=== PATIENT | male | born 1960 | race Caucasian/White ===

== ENCOUNTER 2023-08-12 17:18 | Emergency (ER) | payer MEDICARE, BC, SELFPAY ==
[2023-08-12 17:18] VITALS: BMI 28.8
[2023-08-12 17:29] VITALS: BP 124/77
[2023-08-12 17:52] LABS: % Basophils 0.3 % (0-2); % Eosinophils 2.8 % (0-6); % Immature Granulocytes 0.3 % (0-0.5); % Lymphocytes 25.2 % (20.5-51.1); % Monocytes 15.2 % (1.7-9.3); % Neutrophils 56.2 % (42.2-75.2); Absolute Eosinophils 0.2 10^3/uL (0-0.7); Absolute Lymphocytes 1.6 10^3/uL (1.2-3.4); Absolute Neutrophils 3.6 10^3/uL (1.4-6.5); Hemoglobin 15.9 g/dL (13.0-18.0); Mean Corp Hgb Conc. 36.1 g/dL (33.0-37.0); Mean Corpuscular Hgb 29.7 pg (27.0-31.0); Mean Corpuscular Volume 82.2 fL (80.0-94.0); Mean Platelet Volume 9.8 fL (7.4-10.4); Nucleated Red Blood Cells % 0 % (-); Platelet Count 234 10^3/uL (130-400); Red Blood Cell Count 5.35 10^6/uL (4.70-6.10); Red Cell Dist. Width 13.2 % (11.5-14.5); White Blood Cell Count 6.4 10^3/uL (4.8-10.8)
[2023-08-12 18:24] LABS: ALT (SGPT) 66 U/L (0-50); AST (SGOT) 52 U/L (17-59); Albumin 4.2 g/dl (3.5-5.0); Alkaline Phosphatase 102 U/L (38-126); Blood Urea Nitrogen 14 mg/dl (9-20); Calcium 9.4 mg/dl (8.4-10.2); Carbon Dioxide 27 mmol/L (22-30); Chloride 98 mmol/L (98-107); Glucose 107 mg/dl (70-99); Potassium 4.1 mmol/L (3.5-5.1); Sodium 135 mmol/L (135-145); Total Bilirubin 1.4 mg/dl (0.2-1.3); Total Protein 7.2 g/dl (6.3-8.2); eGFR > 60.00
--- NOTE | 2023-08-12 20:20 | ED.GENMED ---
History of Present Illness
General
Chief Complaint: Dehydration Symptoms
Source: patient
Exam Limitations: none
Time Seen by Provider: 08/12/23 19:45
Travel History
Have you had any contact with someone who has COVID-19?: No
Do you have any symptoms of coronavirus? Fever > 100 degrees, chills, cough, shortness of breath, sore throat, loss of taste or smell, muscle aches, or headache?: No
History of Present Illness
History of Present Illness:
This is a 63 year old male that comes in with c/o weakness. States that Thursday he just did not feel himself. States that he went to bed at 7pm and he has not been out of bed since then. State that he would feel hot and then had cold sweats,
headache, lethargic and diarrhea. States that he would try and get out of bed and he was wobbly and had to hold onto things. States that he knocked over the night stand. States that he has had chills, nausea, diarrhea, headache from front to back
and his urine is very concentrated. Denies any fever, chest pain, SOB, abd pain, vomiting, dizziness, urinary burning.
Past History
Past History
ED Past Medical History: Cancer (Sarcoma)
ED Past Surgical History: Urological (Partial right Nephrectomy) and Other (Left lung Lobectomy, Right chest flank removal due to Sarcoma, Hernia repair, sarcoma of spine removed. )
Social History
Tobacco: Non-smoker
Alcohol: None
Personal:
Living: with family
Review of Systems
Review of Systems
All Other Systems: ROS reviewed and negative except as documented in HPI and ROS
Constitutional: Reports fatigue, night sweats and chills; Denies fever
EENT: Reports no symptoms
Respiratory: Reports no symptoms; Denies cough or trouble breathing
Cardiac: Reports no symptoms; Denies chest pain
ABD/GI: Reports nausea and diarrhea; Denies abdominal pain or vomiting
: Reports dark urine; Denies dysuria or frequency
Musculoskeletal: Reports no symptoms
Skin: Reports no symptoms
Neurological: Reports headache; Denies dizzy
Psychiatric: Reports no symptoms
Phy Exam
General Physical Exam
General Presentation: no apparent distress
General age: appears stated age
General Skin: warm and dry
General Habitus: normal
General Mental: alert
General Hydration: appears well hydrated
ENT Exam
ENT Exam: TM's normal, pharynx normal and neck supple
Eye Exam
Eye Exam: EOMI
Cardiovascular Exam
Cardiovascular Exam: regular rate/rhythm, no edema, no murmur and normal peripheral pulses
Pulmonary Exam
Pulmonary Exam: lungs clear, no respiratory distress, no rales, chest non tender, no crackles, no rhonchi, no wheezing and no cough
Gastrointestinal Exam
Gastrointestinal Exam: normal bowel sounds, non tender, soft, no organomegaly, no pulsatile mass and non distended
Musculoskeletal Exam
Musculoskeletal Exam: full ROM and no edema
Skin Exam
Skin Exam: normal color, warm/dry, no rash and no petechia
Psychiatric Exam
Psychiatric Exam: normal mood/affect
Course
Orders/Labs/Results
Orders:
Orders
08/12/23 17:39
CMP [Comprehensive Metabolic Panel] Urgent
Complete Blood Count/With Diff Urgent
08/12/23 20:19
0.9% Sodium Chloride 1000 ml [Nss] 1,000 ml IV BOLUS
08/12/23 20:20
CR Chest - 2 Views Urgent
Comment: history of sarcoma
Reason For Exam: weakness
08/12/23 20:21
CT Head W/o Iv Contrast Urgent
Comment:
Reason For Exam: Headache, balance problem
08/12/23 20:56
Lactic Acid Urgent
Blood Culture Q30M
MARSHAL Source: Blood/Venous
Specimen Description:
08/12/23 21:00
Blood Culture Q30M
MARSHAL Source: Blood/Venous
Specimen Description:
08/12/23 21:04
COVID-19 Antigen Urgent
Source: Nasal Swab
08/12/23 23:39
Urinalysis Reflex To Culture Urgent
Date Specimen was Collected: 08/12/23
Time Specimen was Collected: 23:37
Urine Microscopic Reflex Cult Urgent
Abnormal Lab Results
08/12/23 08/12/23
17:39 23:39
Absolute Monos (auto) 1.0 H 10^3/uL
(0.1-0.6)
Monocytes % 15.2 H %
(1.7-9.3)
Glucose 107 H mg/dl
(70-99)
Total Bilirubin 1.4 H mg/dl
(0.2-1.3)
ALT 66 H U/L
(0-50)
Urine Ketones 1+ A
(Negative)
Leukocyte Esterase Rfl Trace A
(Negative)
08/12/23 17:39
08/12/23 17:39
Glucose nonfasting. Total nigel very slightly elevated. ALT elevation. COVID negative, Urine negative for infection
Vital Signs
Initial and Last Documented VS:
Initial Vital Signs
Temp Pulse Resp BP Pulse Ox
98.3 F 85 20 124/77 98
08/12/23 17:08/12/23 17:08/12/23 17:08/12/23 17:08/12/23 17:29
Last Documented Vital Signs
Temp Pulse Resp BP Pulse Ox
98.3 F 85 20 139/71 96
08/12/23 17:29 08/12/23 17:08/12/23 17:29 08/13/23 00:00 08/13/23 00:00
MDM/Problems Addressed
Differential Diagnosis Includes:
Viral syndrome.
MDM/Problems Addressed:
This is a 63 year old male that comes in with multiple complaints. state that he just did not feel himself on Thursday and stayed in bed till today. States that he has had a headache, lethargic, diarrhea, nausea and he felt wobbly.
Will get labs. CT head and chest x-ray. will give IV fluids, COVID and urine.
Back into see patient. Reviewed labs and CT findings. Got patient OOB and he was able to walk in the room without difficulty and went to the BR
Into see patient explained that his urine is negative for infection. Encouraged patient to increase his water intake, Follow up with the family doctor tomorrow and return with any other concerns.
Chronic conditions affecting care:
NA
Acute Exacerbation and/or Progression of Chronic Illness:
NA
*Radiology
Radiology exam reviewed: radiology read reviewed (CT head-No acute intracranial abnormality. chest-No acute cardiopulmonary process. )
*Pulse Oximetry
Patient hypoxic: no
*EKG
Interpreted by ED Provider?: NA
Rate: EKG- N/A
*Fuse Cutter Interpretation
Rate: Fuse Cutter- N/A
*Critical Care Note
Total Time (30-74mins, 75-104mins- exclusive of procedures): Not Applicable
ED Attending Note
-
Portions of this chart may have been created with voice recognition software.� Occasional wrong word or��sound alike� substitutions may have occurred due to the inherent limitations of voice recognition software.
Discharge Plan
Departure
Patient Disposition: Home (Routine Discharge)
Date of Disposition: 08/13/23
Time of Disposition: 00:17
Patient with high blood pressure during this ER visit?: Yes
Condition: Good
Covid-19: Negative COVID-19
Discharge Problem:
Headache, Nausea and diarrhea
Instructions: Headache, Adult ED, BLOOD PRESSURE
Prescriptions:
No Action
cetirizine 10 mg Tablet
10 mg PO QPM
ibuprofen 200 mg Capsule
600 mg PO Q6H PRN (Reason: mild pain/fever)
metoprolol succinate 100 mg Tablet Extended Release 24 Hr
100 mg PO QPM
amlodipine 5 mg tablet
5 mg PO QPM
escitalopram oxalate 10 mg tablet
10 mg PO QPM
rosuvastatin 5 mg tablet
5 mg PO QPM
tadalafil 5 mg tablet
5 mg PO DAILY PRN (Reason: ed)
Referrals:
Tanya Bernstein MD [Family Provider] - Follow up in 2-3 days
Activity Restrictions/Additional Instructions:
As discussed, your blood work shows that your lactic acid is normal along with your WBC. Your ALT is very slightly elevated and t his can happen with a viral illness. You are negative for COVID and your urine is negative. Your CT of the head is
normal along with your chest x-ray. Please increase your water intake to 8-8oz glasses daily. Follow up with the family doctor in the next 1-3 days. IF YOU HAVE ANY OTHER CONCERNS PLEASE RETURN TO THE EMERGENCY ROOM.
Interventions
Interventions:
*Risk Screen - Suicide Last Done: 08/12/23 17:29
*General Assessment Last Done: 08/12/23 17:29
*Neglect/Abuse Screening Last Done: 08/12/23 17:29
ED- Fall Risk Assessment Last Done: 08/12/23 20:43
ED- Cardiac Assessment Last Done: 08/12/23 20:43
ED- Neurological Assessment Last Done: 08/12/23 20:43
ED- Pulmonary Assessment Last Done: 08/12/23 20:43
Discharge Date and Time
Print Language: HUNGARIAN
[2023-08-12 20:42] VITALS: BP 130/65
[2023-08-12] MEDS: NSS 1000 IV (20:58)
[2023-08-12 21:00] VITALS: BP 152/82
[2023-08-12 21:26] LABS: COVID-19 Antigen Negative (Negative)
[2023-08-12 22:00] VITALS: BP 115/69
[2023-08-12 23:00] VITALS: BP 125/69
[2023-08-12 23:49] LABS: Urine Albumin Negative (Neg - Trace); Urine Bilirubin Negative (Negative); Urine Character Clear (Clear); Urine Color Yellow; Urine Glucose Negative (Negative); Urine Ketone 1+ (Negative); Urine Leukocyte Trace (Negative); Urine Nitrite Negative (Negative); Urine Occult Blood Negative (Negative); Urine Specific Gravity 1.025 (<1.030); Urine Urobilinogen Negative (Neg - 1+)
[2023-08-13] VITALS: BP 139/71
[2023-08-13 00:46] LABS: Urine Bacteria Moderate (Negative); Urine Granular Cast 0-2 /LPF (0); Urine Hyaline Cast 0-2 /LPF (0-2); Urine Mucus Moderate; Urine Red Blood Cell 0-2 /HPF (0-2)
== END 2023-08-13 00:33 | disposition home or self-care (01) ==
LOC: EMR 17:18
PROVIDERS: Clinical Nurse Specialist Family Health; Student in an Organized Health Care Education/Training Program; EMERGENCY PHYSICIAN Emergency Medicine; FAMILY PHYSICIAN Emergency Medicine
DX: R51.9 Headache, unspecified (principal); R11.0 Nausea; R19.7 Diarrhea, unspecified; R53.83 Other fatigue; R26.89 Other abnormalities of gait and mobility; Z11.52 Encounter for screening for COVID-19; R03.0 Elevated blood-pressure reading, without diagnosis of hypertension; Z90.5 Acquired absence of kidney; Z90.2 Acquired absence of lung [part of]; Z85.831 Personal history of malignant neoplasm of soft tissue; Z88.0 Allergy status to penicillin
CPT/HCPCS: 99284; 96360; 70450; 71046; 80053; 81003; 81015; 83605; 85025; 87040; 87086; 87811

== ENCOUNTER 2023-11-15 21:36 | Emergency (ER) | payer MEDICARE, BC, SELFPAY ==
[2023-11-15 21:42] VITALS: BP 122/72
[2023-11-15 22:07] LABS: % Basophils 0.1 % (0-2); % Eosinophils 0.4 % (0-6); % Immature Granulocytes 0.4 % (0-0.5); % Lymphocytes 8.7 % (20.5-51.1); % Neutrophils 85.4 % (42.2-75.2); Absolute Eosinophils 0.1 10^3/uL (0-0.7); Absolute Immature Granulocytes 0.1 10^3/uL (0-0.05); Absolute Lymphocytes 1.2 10^3/uL (1.2-3.4); Absolute Monocytes 0.7 10^3/uL (0.1-0.6); Absolute Neutrophils 11.5 10^3/uL (1.4-6.5); Hemoglobin 15.5 g/dL (13.0-18.0); Mean Corp Hgb Conc. 36.9 g/dL (33.0-37.0); Mean Corpuscular Hgb 30.3 pg (27.0-31.0); Mean Corpuscular Volume 82.2 fL (80.0-94.0); Mean Platelet Volume 9.3 fL (7.4-10.4); Nucleated Red Blood Cells % 0 % (-); Platelet Count 226 10^3/uL (130-400); Red Blood Cell Count 5.11 10^6/uL (4.70-6.10); White Blood Cell Count 13.5 10^3/uL (4.8-10.8)
[2023-11-15 22:13] VITALS: BMI 30.2
[2023-11-15 22:32] LABS: ALT (SGPT) 32 U/L (0-50); AST (SGOT) 33 U/L (17-59); Albumin 4.8 g/dl (3.5-5.0); Alkaline Phosphatase 66 U/L (38-126); Blood Urea Nitrogen 15 mg/dl (9-20); Calcium 9.1 mg/dl (8.4-10.2); Carbon Dioxide 22 mmol/L (22-30); Chloride 103 mmol/L (98-107); Estimated Creatinine Clearance 95 ml/min; Glucose 141 mg/dl (70-99); Potassium 4.4 mmol/L (3.5-5.1); Sodium 141 mmol/L (135-145); Total Bilirubin 1.3 mg/dl (0.2-1.3); Total Protein 7.2 g/dl (6.3-8.2); eGFR > 60.00
[2023-11-15 22:37] VITALS: BP 122/73; BP 123/65; BP 131/72; PULSE 71; PULSE 75; PULSE 77
--- NOTE | 2023-11-16 00:22 | ED.GENMED ---
History of Present Illness
General
Chief Complaint: Fainting Sensation
Source: patient, family (Son who is at bedside) and ambulance crew
Exam Limitations: none
Time Seen by Provider: 11/15/23 22:57
Nursing documentation reviewed up to this point in time: agreed with
History of Present Illness
History of Present Illness:
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 No history of recurrence.
[place] most of the day today admits to drinking 5-6 beers throughout the day and while sitting on a bench he began to feel lightheaded, nauseous, became diaphoretic and proceeded to pass out. Son who was with him
witnessed his father to lean back, brief loss of consciousness and then sat forward, retched and vomited several times. He did not fall off of the bench. Loss of consciousness was brief and without recurrence. He denies palpitations nor chest
pain. He denies dizziness, no headache, no chest nor back pain or abdominal pain. No history of similar episodes in the past. Prior to this event he had been feeling well.
Upon EMS arrival patient noted to be hypotensive, was given IV normal saline�1 L as well as IV Zofran 4 mg prehospital with complete resolution of symptoms.
Past History
Past History
ED Past Medical History: Cancer (Sarcoma), HTN and Hypercholesterolemia
ED Past Surgical History: Urological (Partial right Nephrectomy) and Other (Left lung Lobectomy, Right chest flank removal due to Sarcoma, Hernia repair, sarcoma of spine removed. )
Social History
Tobacco: Non-smoker
Alcohol: Occasional
Drug: None
Personal:
Living: with family
Employment: Retired
Family History
Family History: Other (Noncontributory)
Phy Exam
Physical Exam
Physical Exam:
GENERAL: 63-year-old gentleman appears his stated age, bright and alert, pleasant, appears in no acute distress. Quite jovial and easily communicative. Son is accompanying.
EYE: pupils equal and reactive. anicteric
NECK: Supple, nontender, no meningismus, no significant adenopathy.
ENT: posterior pharynx is clear, oral mucosa is moist. No rhinorrhea.
CARDIAC: Regular rate and rhythm. no murmur.
LUNGS: Clear breath sounds bilaterally, no acute respiratory distress, no wheezes/rales/rhonchi
ABDOMEN: Soft, nondistended, without focal tenderness, no r/g, no cvat. normoactive BS.
NEUROLOGICAL: Alert and oriented x3, no focal neuro deficits.
SKIN: Warm and dry, moderately tanned, sun exposed skin, skin intact. No rash.
MUSCULOSKELETAL: No C/C/E. peripheral pulses are full and equal b/l. No palpable tenderness.
PSYCH: Normal and appropriate interaction.
Course
Orders/Labs/Results
Orders:
Orders
11/15/23 21:49
Electrocardiogram (*1) Urgent
Reason for Study: Syncope
EKG- Treatment ONCE
11/15/23 21:59
Complete Blood Count/With Diff Urgent
Comprehensive Metabolic Panel Urgent
11/15/23 23:20
Orthostatic VS- Treatment ONCE
Abnormal Lab Results
11/15/23
21:59
WBC 13.5 H 10^3/uL
(4.8-10.8)
Abs Immat Gran (auto) 0.1 H 10^3/uL
(0-0.05)
Absolute Neuts (auto) 11.5 H 10^3/uL
(1.4-6.5)
Absolute Monos (auto) 0.7 H 10^3/uL
(0.1-0.6)
Neutrophils % 85.4 H %
(42.2-75.2)
Lymphocytes % 8.7 L %
(20.5-51.1)
Glucose 141 H mg/dl
(70-99)
11/15/23 21:59
11/15/23 21:59
Vital Signs
Initial and Last Documented VS:
Initial Vital Signs
Temp Pulse Resp BP Pulse Ox
97.4 F 76 18 122/72 97
11/15/23 21:42 11/15/23 21:42 11/15/23 21:42 11/15/23 21:42 11/15/23 21:42
Last Documented Vital Signs
Temp Pulse Resp BP Pulse Ox
97.4 F 76 18 122/72 96
11/15/23 21:42 11/15/23 21:42 11/15/23 21:42 11/15/23 21:42 11/15/23 22:21
MDM/Problems Addressed
Differential Diagnosis Includes:
History concerning for vasovagal syncope, dehydration, arrhythmia, gastroenteritis. Nothing to suggest seizure.
Prompt resolution of symptoms after IV fluids and an IV dose of Zofran.
Remains hemodynamically stable since arrival to the ED.
EKG is unremarkable.
Monitor shows normal sinus rhythm without ectopy.
Labs show mildly elevated 1 blood cell count of 13, normal H&H.
Chemistries show mildly elevated random glucose of 141 otherwise unremarkable.
Will check orthostatic vital signs, trial oral fluids and continue front desk monitor.
Chronic conditions affecting care: HTN
*Pulse Oximetry
Patient hypoxic: no
*EKG
Interpreted by ED Provider?: Yes
Interpretation: normal
Comparison EKG: no comparison EKG present
Rate: normal
Rhythm: sinus
[place]: normal axis
Interval: normal interval
QRS Pattern: normal QRS
Ischemia: no ischemia
*Seed Production Field Supervisor Interpretation
Rate: normal
Interpretation: normal
Rhythm: sinus
*Critical Care Note
Total Time (30-74mins, 75-104mins- exclusive of procedures): Not Applicable
Update Note
Update Note:
11/16/2023 0030 AM
Orthostatic vital signs are negative.
Patient continues to feel well without return of nausea nor syncopal symptoms.
Tolerating oral fluids.
Will discharge to home with recommendations for follow-up with PCP for recheck.
Discussed importance of avoiding any further alcoholic beverages otherwise rest, stay well-hydrated on a daily basis.
Return precautions discussed.
ED Attending Note
-
Portions of this chart may have been created with voice recognition software.� Occasional wrong word or��sound alike� substitutions may have occurred due to the inherent limitations of voice recognition software.
Discharge Plan
Departure
Patient Disposition: Home (Routine Discharge)
Date of Disposition: 11/16/23
Time of Disposition: 00:36
Patient with high blood pressure during this ER visit?: No
Condition: Good
Discharge Problem:
Vasovagal syncope
Instructions: Syncope (Fainting) (DC), Vasovagal Response (DC)
Prescriptions:
No Action
cetirizine 10 mg Tablet
10 mg PO QPM
metoprolol succinate 100 mg Tablet Extended Release 24 Hr
100 mg PO QPM
amlodipine 5 mg tablet
5 mg PO QPM
escitalopram oxalate 10 mg tablet
10 mg PO QPM
rosuvastatin 5 mg tablet
5 mg PO QPM
tadalafil 5 mg tablet
5 mg PO DAILY PRN (Reason: ed)
ascorbic acid (vitamin C) [Vitamin C] 1,000 mg Tablet
1,000 mg PO DAILY
Referrals:
Tanya Bernstein MD [Family Provider] - Call in 1-3 days for appt
Interventions
Interventions:
*Risk Screen - Suicide Last Done: 11/15/23 21:42
*General Assessment Last Done: 11/15/23 21:42
*Neglect/Abuse Screening Last Done: 11/15/23 21:42
ED- Fall Risk Assessment Last Done: 11/15/23 22:21
ED- Cardiac Assessment Last Done: 11/15/23 22:21
ED- Neurological Assessment Last Done: 11/15/23 22:21
Discharge Date and Time
Print Language: MALIAN
[2023-11-16 01:30] VITALS: BP 126/82
== END 2023-11-16 01:45 | disposition home or self-care (01) ==
LOC: EMR 21:36
PROVIDERS: Emergency Medicine; EMERGENCY PHYSICIAN Emergency Medicine; FAMILY PHYSICIAN Emergency Medicine
DX: R55 Syncope and collapse (principal); I10 Essential (primary) hypertension; E78.00 Pure hypercholesterolemia, unspecified
CPT/HCPCS: 99284; 80053; 85025; 93005

== ENCOUNTER → 2023-12-16 08:14 | Outpatient (REF) | payer MEDICARE, BC, SELFPAY | LOC: HWRCS 08:14 | PROVIDERS: ATTENDING PHYSICIAN Internal Medicine Interventional Cardiology; FAMILY PHYSICIAN Emergency Medicine | DX: R42 Dizziness and giddiness (principal); I10 Essential (primary) hypertension | CPT/HCPCS: 93306 ==

== ENCOUNTER → 2023-12-22 08:32 | Outpatient (REF) | payer MEDICARE, BC, SELFPAY | LOC: MRI 3T 08:32 | PROVIDERS: ATTENDING PHYSICIAN Emergency Medicine | DX: R55 Syncope and collapse (principal) | CPT/HCPCS: 70553; A9575 ==

== ENCOUNTER → 2024-08-31 19:43 | Outpatient (REF) | payer BC, MEDICARE, SELFPAY | LOC: MRI 3T 19:43 | PROVIDERS: ATTENDING PHYSICIAN Specialist; FAMILY PHYSICIAN Emergency Medicine | DX: M25.511 Pain in right shoulder (principal) | CPT/HCPCS: 73221 ==

== ENCOUNTER 2025-01-30 14:19 | Emergency (ER) | payer MEDICARE, BC, SELFPAY ==
[2025-01-30] VITALS (10 sets, daily range): BP systolic 131–160; BP diastolic 71–98; PULSE 62–73; BMI 31.5
[2025-01-30 15:00] LABS: Hematocrit 46.3 % (39.0-52.0); Hemoglobin 15.2 g/dL (13.0-18.0); Mean Corp Hgb Conc. 32.8 g/dL (33.0-37.0); Mean Corpuscular Volume 88.2 fL (80.0-94.0); Nucleated Red Blood Cells % 0 % (-); Platelet Count 250 10^3/uL (130-400); Red Cell Dist. Width 13.1 % (11.5-14.5)
[2025-01-30 15:29] LABS: ALT (SGPT) 32 U/L (0-50); AST (SGOT) 23 U/L (17-59); Albumin 4.7 g/dl (3.5-5.0); Alkaline Phosphatase 58 U/L (38-126); Blood Urea Nitrogen 16 mg/dl (9-20); Calcium 9.2 mg/dl (8.4-10.2); Carbon Dioxide 29 mmol/L (22-30); Chloride 101 mmol/L (98-107); Glucose 106 mg/dl (70-99); Potassium 4.3 mmol/L (3.5-5.1); Sodium 136 mmol/L (135-145); Total Protein 7.2 g/dl (6.3-8.2); Troponin I 0.015 ng/ml; eGFR > 60.00
--- NOTE | 2025-01-30 16:00 | EDRN ---
Nikkie Hernandez [employer] OFFICER in to see pt.
--- NOTE | 2025-01-30 16:07 | ED.GENMED ---
History of Present Illness
General
Chief Complaint: Dizziness
Source: patient
Exam Limitations: none
Time Seen by Provider: 01/30/25 15:57
Nursing documentation reviewed up to this point in time: agreed with
History of Present Illness
History of Present Illness:
Patient to the emergency department for evaluation of dizziness and chest pain. States he started with dizziness approximately 1 week ago. He was seen by his family doctor and placed on meclizine 3 times daily. He reports no changes in his
symptoms. He also had noticed substernal chest pain radiating to the left side of his chest which had started about the same time. He had not addressed the chest pain with his provider at the office visit last week. Today he returned to his
provider for reevaluation. He discussed his ongoing chest pain with the provider and was advised to come to the emergency department for evaluation. He denies any headache or blurred vision. He denies fever/chills, or recent illness. He denies
any nausea/vomiting/diaphoresis. There are no aggravating or alleviating factors related to his chest pain. Movement of his head makes his dizziness worse. No prior history of either symptom in the past
Past History
Past History
ED Past Medical History: Cancer (Sarcoma), HTN and Hypercholesterolemia
ED Past Surgical History: Urological (Partial right Nephrectomy) and Other (Left lung Lobectomy, Right chest flank removal due to Sarcoma, Hernia repair, sarcoma of spine removed. )
Social History
Tobacco: Non-smoker
Alcohol: Occasional
Drug: None
Personal:
Living: with family
Employment: Retired
Family History
Family History: Other (Noncontributory)
Review of Systems
Review of Systems
Allergies reviewed?: Yes
All Other Systems: ROS reviewed and negative except as documented in HPI and ROS
Constitutional: Reports no symptoms
EENT: Reports no symptoms
Respiratory: Reports no symptoms
Cardiac: Reports chest pain (Substernal chest pressure with radiating to left side of his chest.)
ABD/GI: Reports no symptoms
: Reports no symptoms
Musculoskeletal: Reports no symptoms
Skin: Reports no symptoms
Neurological: Reports dizzy
Psychiatric: Reports no symptoms
Phy Exam
General Physical Exam
General Presentation: well appearing and no apparent distress
General age: appears stated age
General Skin: warm and dry
General Habitus: normal
General Mental: alert
ENT Exam
ENT Exam: EOMI and normocephalic
Eye Exam
Eye Exam: PERRL, EOMI, conjunctiva normal and globe normal
Cardiovascular Exam
Cardiovascular Exam: regular rate/rhythm and no edema
Pulmonary Exam
Pulmonary Exam: lungs clear and no respiratory distress
Neurological Exam
Neurological Exam: alert, oriented x3, CN II-XII intact, no motor deficits, no sensory deficits and speech normal
Musculoskeletal Exam
Musculoskeletal Exam: full ROM and no edema
Skin Exam
Skin Exam: normal color, warm/dry and no rash
Psychiatric Exam
Psychiatric Exam: normal mood/affect
Course
Orders/Labs/Results
Orders:
Orders
01/30/25 14:20
Electrocardiogram (*1) Urgent
Reason for Study: Chest Pain
EKG- Treatment ONCE
01/30/25 14:35
Complete Blood Count/With Diff Urgent
Comprehensive Metabolic Panel Urgent
Troponin I Urgent
01/30/25 16:04
Orthostatic VS- Treatment ONCE
01/30/25 16:05
CT Head W/o Iv Contrast Urgent
Comment:
Reason For Exam: dizziness
CR Chest - 2 Views Urgent
Comment:
Reason For Exam: chest pain
01/30/25 17:35
Troponin I Urgent
01/30/25 19:03
CT Chest PE Study Urgent
Comment:
Reason For Exam: CP/SOB
0.9% Sodium Chloride 1000 ml [Nss] 1,000 ml IV BOLUS
Abnormal Lab Results
01/30/25
14:35
WBC 11.0 H 10^3/uL
(4.8-10.8)
MCHC 32.8 L g/dL
(33.0-37.0)
Absolute Neuts (auto) 8.1 H 10^3/uL
(1.4-6.5)
Absolute Monos (auto) 0.7 H 10^3/uL
(0.1-0.6)
Lymphocytes % 17.8 L %
(20.5-51.1)
Glucose 106 H mg/dl
(70-99)
Total Bilirubin 1.4 H mg/dl
(0.2-1.3)
01/30/25 14:35
01/30/25 14:35
Vital Signs
Initial and Last Documented VS:
Initial Vital Signs
Temp Pulse Resp BP Pulse Ox
98.4 F 72 20 145/84 98
01/30/25 14:25 01/30/25 14:25 01/30/25 14:25 01/30/25 14:25 01/30/25 14:25
Last Documented Vital Signs
Temp Pulse Resp BP Pulse Ox
98.4 F 61 17 136/80 97
01/30/25 14:25 01/30/25 21:45 01/30/25 21:45 01/30/25 21:27 01/30/25 21:45
*Radiology
Radiology exam reviewed: radiology read reviewed
*Pulse Oximetry
SaO2: 98
Oxygen Mode of Delivery: Room air
Patient hypoxic: no
*Critical Care Note
Total Time (30-74mins, 75-104mins- exclusive of procedures): Not Applicable
Update Note
Update Note:
Patient to the emergency department for evaluation of ongoing vertigo, and chest pain. Patient states his symptoms started approximately 1 week ago. He was evaluated by PCP but did not mention any chest pain symptoms at that time. He was placed
on meclizine without any improvement. He returned to PCP today for a follow-up appointment and when he discussed the presence of chest pain he was advised to come to the emergency department. There are no aggravating or alleviating factors to his
chest pain. He describes it as mild and dull. There is no associated nausea vomiting or diaphoresis. Vital signs are stable. CBC and CMP without concerning findings. Troponin 0.017. EKG NSR. CT of head and chest x-ray were obtained no
concerning findings noted. Discussed case with Dr. Beatty recommends chest CT to rule out PE. PE study performed, negative for PE. No acute disease of the chest however mild diffuse wall thickening of the esophagus was noted which may be seen
with esophagitis. Suspect this is the cause of his chest discomfort. He will be discharged home today. Close follow-up with PCP. He was also instructed to follow-up with his reduction furnace operator this week. He was given instructions on signs and
symptoms to return to the emergency department and he is agreeable with this plan.
ED Attending Note
-
Portions of this chart may have been created with voice recognition software.� Occasional wrong word or��sound alike� substitutions may have occurred due to the inherent limitations of voice recognition software.
Discharge Plan
Departure
Patient Disposition: Home (Routine Discharge)
Date of Disposition: 01/30/25
Time of Disposition: 21:07
Patient with high blood pressure during this ER visit?: No
Condition: Good
Covid-19: Not Applicable
Discharge Problem:
Vertigo
Instructions: Vertigo (a Type of Dizziness) (DC), Chest Pain DCA Follow Up
Prescriptions:
No Action
cetirizine 10 mg Tablet
10 mg PO QPM
metoprolol succinate 100 mg Tablet Extended Release 24 Hr
100 mg PO QPM
amlodipine 5 mg tablet
5 mg PO QPM
escitalopram oxalate 10 mg tablet
10 mg PO QPM
rosuvastatin 5 mg tablet
5 mg PO QPM
tadalafil 5 mg tablet
5 mg PO DAILY PRN (Reason: ed)
ascorbic acid (vitamin C) [Vitamin C] 1,000 mg Tablet
1,000 mg PO DAILY
Referrals:
Tanya Bernstein MD [Family Provider, Internal Medicine] - Tomorrow
Activity Restrictions/Additional Instructions:
As we discussed, please follow-up with your primary care provider and your reduction furnace operator this week. Return to the emergency department for any changes in/worsening of your symptoms.
Interventions
Interventions:
*Risk Screen - Suicide Last Done: 01/30/25 16:28
*General Assessment Last Done: 01/30/25 16:26
*Neglect/Abuse Screening Last Done: 01/30/25 16:26
*ED- Fall Risk Assessment Last Done: 01/30/25 16:26
*ED COVID-19 Vaccine History Last Done: 01/30/25 16:26
*ED Influenza Vaccine History Last Done: 01/30/25 16:26
*Nursing Disposition Last Done: 01/30/25 22:00
ED- Neurological Assessment Last Done: 01/30/25 16:33
ED- Cardiac Assessment Last Done: 01/30/25 16:33
ED Swallowing Screen Last Done: 01/30/25 16:33
Discharge Date and Time
Discharge Date/Time: 01/30/25 22:00
Print Language: UPPER SORBIAN
--- NOTE | 2025-01-30 17:39 | EDRN ---
Repeat tropinin drawn and sent at this time.
[2025-01-30 18:12] LABS: Troponin I 0.017 ng/ml
[2025-01-30] MEDS: NSS 1000 IV (19:33)
== END 2025-01-30 22:00 | disposition home or self-care (01) ==
LOC: EMR 14:19
PROVIDERS: Nurse Practitioner; EMERGENCY PHYSICIAN Emergency Medicine; FAMILY PHYSICIAN Emergency Medicine
DX: R42 Dizziness and giddiness (principal); R07.89 Other chest pain; I10 Essential (primary) hypertension; E78.00 Pure hypercholesterolemia, unspecified; Z90.5 Acquired absence of kidney
CPT/HCPCS: 99284; 70450; 71046; 71275; 80053; 84484; 85025; 93005; Q9967